=== PATIENT | female | born 1990 | race Caucasian/White ===

== ENCOUNTER 2021-04-06 00:01 | Inpatient (IN) | payer OTHER, SELFPAY ==
[2021-04-06 00:42] VITALS: BMI 35.6
[2021-04-06 01:53] VITALS: BMI 34.1
[2021-04-06] MEDS: traZODone HCL 50 MG TABLET PO (02:06)
--- NOTE | 2021-04-06 04:12 | PC.ADMIT ---
Pt is a 30 year female transferred from [facility] for Overdose. Diagnosis: Bipolar depression. Pt reported to the ER for overdosing on 21 tablets of Seroquel 400mg. Reports she was med compliant for a year, then 2months ago stopped taking meds due to negative side effects. Covid negative, FLORES negative. Pt denies SI/HI. Pt lives with her boyfriend who helps with picking up medications. Pt was calm and cooperative, VSS, speech was clear with normal tone and rhythm. Pt reports being intubated at [facility] ER.
[2021-04-06 06:00] VITALS: BP 169/88; PULSE 92; RESP 16; TEMP 36.2; O2SAT 99
[2021-04-06] MEDS: Naltrexone HCl 50 MG TABLET PO (08:45)
[2021-04-06 09:48] LABS: Appearance Urine HAZY; Color Urine YELLOW; Glucose Urine UA NEG (NEG); Leukocyte Esterase Urine NEG (NEG); Nitrite Urine NEG (NEG); Specific Gravity - Urine >= 1.030 (1.005-1.025); UACC Culture Trigger NO; Urine Blood TRACE (NEG); Urine Ketones 40 MG/DL (NEG); Urine Protein TRACE MG/DL (NEG-TRACE)
[2021-04-06 10:25] LABS: Bacteria Urine TRACE /LPF; Mucus Urine 2+ /LPF; RBC Urine 0-2 /HPF (0); Squamous Epithelial Cell Urine 4+ /LPF; UACC CULT YES
--- NOTE | 2021-04-06 15:24 | HO.PM.IMCN ---
History of Present Illness Data of Consult Service Date: 04/06/21 Requesting physician: John Ambriz Primary Care Provider: Nonstaff Physician HPI Reason for consult: Medical consult 30-year-old female admitted to 5 secondary to depression with suicidal ideation. She states this was related to alcohol intake and as she clear she is feeling better. There are no acute medical issues Review of Systems Review of Systems: Denies chest pain Denies shortness of breath Denies nausea vomiting and diarrhea PMFSH Pertinent family history: none pertinent Social History Household Members: Significant Other Housing: House Do you presently have visiting nurse or other home services: No Patient Tobacco Use Status: Never used Tobacco Use of substances other than those prescribed or required for medical reasons: No Substance Use Type Other:: Pt denies substance use Currently Displaying Signs/Symptoms of Drug Intoxication Withdrawal: No Any prior treatment program specific to substance use: No Have you been hit, kicked, punched, or otherwise hurt by someone within the past year? If so, by whom?: No Do you feel safe in your current relationship?: No Is there a partner from a previous relationship who is making you feel unsafe now?: No Are you made to feel afraid or neglected: No Spiritual Healthcare Practices: N/A Zoroastrian Healthcare Practices: N/A Cultural Healthcare Practices: N/A Advance Directives: No Advance Directives Information Provided: Yes Do you have thoughts of harming others: None Do you have a plan to hurt others: No Plan Recently lost weight without trying: No How much weight loss: Unsure Eating poorly because of decreased appetite: No Nutrition screen score: 2 Nutrition Risks: No Nutritional Risk Patient : No : No Poor oral hygiene: No service: No Sexual orientation: Did not discuss. Meds Allergies Allergy/AdvReac Type Severity Reaction Status Date / Time No Known Allergies Allergy Verified 04/06/21 00:42 Active Medications: Current Medications Acetaminophen (Acetaminophen 325 Mg Tablet) 650 mg PO Q6H PRN PRN Reason: Headache/Pain Mild Scale (1-3) Al Hydroxide/Mg Hydroxide (Magnesium Hydrox/Alum Hydrox 30 Ml Oral.Susp) 30 ml PO Q6H PRN PRN Reason: Heartburn/Nausea Hydroxyzine HCl (Hydroxyzine Hcl 25 Mg Tablet) 25 mg PO BEDTIME PRN PRN Reason: Anxiety Magnesium Hydroxide (Milk Of Magnesia 30 Ml Oral.Susp) 30 ml PO DAILY PRN PRN Reason: Constipation Naltrexone HCl (Naltrexone Hcl 50 Mg Tablet) 50 mg PO DAILY [facility]ON Last Admin: 04/06/21 08:45 Dose: 50 mg Documented by: Quetiapine Fumarate (Quetiapine Fumarate 400 Mg Tablet) 400 mg PO BEDTIME SHARRON Trazodone HCl (Trazodone Hcl 50 Mg Tablet) 50 mg PO BEDTIME PRN PRN Reason: Insomnia Last Admin: 04/06/21 02:06 Dose: 50 mg Documented by: Physical Exam Vital Signs and Narrative: Vital Signs: Last Vital Signs Temp 97.2 F 04/06/21 06:00 Pulse 92 04/06/21 06:00 Resp 16 04/06/21 06:00 BP 169/88 H 04/06/21 06:00 Pulse Ox 99 04/06/21 06:00 Body Mass Index 34.1 Const: General: no acute distress HENMT: Other: Mucous membranes moist. Oropharynx clear. TMs pearson and lucent bilaterally Resp: Auscultation: clear to auscultation bilaterally, no rales, no rhonchi and no wheezes Cardio: Rate: regular rate Rhythm: regular rhythm Heart sounds: S1 normal heart sound present, S2 normal heart sound present and no murmurs GI: Other: Soft nontender nondistended with normoactive bowel sounds. There is no appreciable hepatosplenomegaly Neuro: Other: Cranial nerves 2-12 were grossly intact as tested. Motor is 5/5 in all extremities. Sensation is tacked. Cognition is normal Extrem: General: Yes normal to inspection Results Labs Labs: Laboratory Results - last 24 hr 04/06/21 09:26 Urine Color YELLOW Urine Appearance HAZY Urine pH 6.0 Ur Specific [place] >= 1.030 H Urine Protein TRACE Urine Glucose (UA) NEG Urine Ketones 40 Urine Blood TRACE Urine Nitrite NEG Ur Leukocyte Esterase NEG Urine RBC 0-2 Urine WBC 10-14 H Ur Squamous Epith Cells 4+ Urine Bacteria TRACE Urine Mucus 2+ Assessment and Plan (1) Depression: Status: Acute Depression No acute medical issues. Plan as per Psychiatry. Please notify if any medical issues arise. Thanks
--- NOTE | 2021-04-06 17:34 | P.HPPS_ITS ---
HPI Chief Complaint: Bipolar D/O Unspecified Sources of Information: patient interviewed, chart reviewed and crisis/core team assessment reviewed HPI Subjective Notes: Heck Warning and Conditional Voluntary Healthcare Proxy: No Guardianship: No Medical Problems Affecting Mental Status: No Narrative: I felt great for a year on Klonopin 1 mg bid and Seroquel 400 mg at bedtime. I gained 50 lbs. I stopped the meds and lost 25 pounds in 2 months but the racing thoughts came back and I could not sleep. The overdose happened fast- I did not even give it a thought it just happened. 30 yo reports she has schizophrenia, hx of one prior attempt around this time in 2019, s/p OD #21 400 mg Seroquel. Reports stopping meds January 2021 due to weigh gain of 50 lbs. A few weeks into stopping pt lost 25 lbs ~8 weeks, her thoughts began to race and she identifies precipitant as out of the blue while family was sleeping. States she had been feeling SI but with no plan to OD. Past Psychiatric History: IP: 2019 Sept [place] s/p OD, 2019 [place] pt [place], she [facility]. 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 Substance History: Alcohol- one evening per week- 6 hard seltzers-was drinking when she overdosed. Since stopping medications she reports she did return to the above noted drinking pattern Toxicology positive for alcohol and cannabis Denies hx of formal treatment for addiction. Trauma History: Affirms Diagnostics Vital Signs (24Hr): Vital Signs - 24 hr 04/06/21 06:00 Temperature 97.2 F Pulse Rate 92 Respiratory Rate 16 Blood Pressure 169/88 H Pulse Oximetry 99 Body Mass Index 34.1 Labs Labs: Laboratory Results - last 48 hr 04/06/21 09:26 Urine Color YELLOW Urine Appearance HAZY Urine pH 6.0 Ur Specific [place] >= 1.030 H Urine Protein TRACE Urine Glucose (UA) NEG Urine Ketones 40 Urine Blood TRACE Urine Nitrite NEG Ur Leukocyte Esterase NEG Urine RBC 0-2 Urine WBC 10-14 H Ur Squamous Epith Cells 4+ Urine Bacteria TRACE Urine Mucus 2+ Meds/Allergies Meds Home Medications Acetaminophen (Acetaminophen 325 Mg Tablet) 650 mg PO Q6H PRN PRN Reason: Headache/Pain Mild Scale (1-3) Al Hydroxide/Mg Hydroxide (Magnesium Hydrox/Alum Hydrox 30 Ml Oral.Susp) 30 ml PO Q6H PRN PRN Reason: Heartburn/Nausea Famotidine (Famotidine 20 Mg Tablet) 20 mg PO DAILY [facility] Hydroxyzine HCl (Hydroxyzine Hcl 25 Mg Tablet) 25 mg PO BEDTIME PRN PRN Reason: Anxiety Lamotrigine (Lamotrigine 25 Mg Tablet) 25 mg PO BEDTIME [facility] Magnesium Hydroxide (Milk Of Magnesia 30 Ml Oral.Susp) 30 ml PO DAILY PRN PRN Reason: Constipation Naltrexone HCl (Naltrexone Hcl 50 Mg Tablet) 50 mg PO DAILY SHARRON Last Admin: 04/06/21 08:45 Dose: 50 mg Documented by: Olanzapine (Olanzapine 10 Mg Tablet) 10 mg PO ONCE ONE Stop: 04/06/21 21:01 Trazodone HCl (Trazodone Hcl 50 Mg Tablet) 50 mg PO BEDTIME PRN PRN Reason: Insomnia Last Admin: 04/06/21 02:06 Dose: 50 mg Documented by: Allergies Allergies Allergy/AdvReac Type Severity Reaction Status Date / Time No Known Allergies Allergy Verified 04/06/21 00:42 Mental Status Exam Mental Status Exam Patient Appearance: Appropriate Patient Orientation: Person, Place, Time and Situation Level of Consciousness: Awake, Appropriate and Alert Patient Behavior: Appropriate, Talkative, Cooperative, Passive and Good Eye Contact Mood Description: Depressed Affect Description: Flat Patient Cognition Impaired: No Ability to Follow Directions: Good Speech Pattern: Spontaneous Speech Memory Description: Intact Hallucinations: None Delusions: Not Present Thought Process: Distracted Thought Content: positive for Circumstantial Depressive Symptoms: Difficulty Concentrating (racing of her thoughts) Judgement: Fair Assessment & Plan Assessment & Plan (1) Schizoaffective disorder: Status: Acute Code(s): F25.9 - Schizoaffective disorder, unspecified Assessment and Plan: 30 yo s/p OD of #21 400 mg Seroquel in a reported precipitous attempt that took place a few weeks after she stopped medications due to weight gain. Hx of two previous admissions, one for OD Mar 2020. Pt denies any anniversary time, denies SAD hx or current sx and has no other specific precipitant she identifies. She did, when stopping meds, returned to weekly alcohol consumption and did have positive toxicology for cannabis. Plan: Diagnostics-none found-pt has been medically in pt for ~6 days If these are WNL consider Nellie Trial. Lamictal 25 mg daily Reason for continued inpatient stay Substantial Risk for: harm to self and rapid decompensation
[2021-04-06 18:00] VITALS: BP 134/77; PULSE 74; RESP 18; TEMP 36.5; O2SAT 99
[2021-04-06] MEDS: lamoTRIgine 25 MG TABLET PO (20:52)
[2021-04-06] MEDS: OLANZapine 10 MG TABLET PO (20:52)
[2021-04-07 06:00] VITALS: BP 128/80; PULSE 88; TEMP 36.5; O2SAT 98
[2021-04-07] MEDS: Famotidine 20 MG TABLET PO (09:15)
[2021-04-07] MEDS: Naltrexone HCl 50 MG TABLET PO (09:15)
[2021-04-07] MEDS: Acetaminophen 325 MG TABLET 650 MG PO (09:19)
[2021-04-07 10:19] LABS: MANUAL DIFF FLAG NO
[2021-04-07 10:39] LABS: Alanine Aminotransferase 31 U/L (0-31); Albumin Level 4.7 g/dL (3.5-5.0); Alkaline Phosphatase 81 U/L (39-117); Anion Gap 17 (12-20); Aspartate Amino Transferase 29 U/L (5-31); Bilirubin Total 0.6 mg/dL (0.0-1.0); Blood Urea Nitrogen 8 mg/dL (9-16); Carbon Dioxide 22 mmol/L (22-29); Chloride 103 mmol/L (96-108); Cholesterol 348 mg/dL; Creatinine Clr Calc Pharmacy 101.5; Estimated Glomerular Filt Rate > 60; Glucose Fasting 88 mg/dL (60-99); HDL Cholesterol 29 mg/dL; LDL Cholesterol Calculated 283 mg/dl; Potassium 4.2 mmol/L (3.3-5.1); Sodium 138 mmol/L (135-145); Total Protein 8.1 g/dL (6.5-8.0); Triglycerides 184 mg/dL
[2021-04-07 10:41] LABS: Basophils Percent Auto 0.4 % (0-2); Eosinophils Absolute Auto 0.1 X10*3/uL (0.0-0.4); Eosinophils Percent Auto 1.7 % (0-4); Hematocrit 45.8 % (37-47); Hemoglobin 15.3 g/dl (12.0-16.0); Imm Gran Abs Auto 0.03 X10*3/uL (0.00-0.03); Imm Gran Pct Auto 0.4 % (0.0-0.4); Lymphocytes Absolute Auto 2.1 X10*3/uL (1.2-4.9); Lymphocytes Percent Auto 29.7 % (20-40); Mean Corpuscular HGB Conc 33.4 g/dl (31.0-35.0); Mean Corpuscular Hemoglobin 30.7 pg (27.0-33.0); Mean Platelet Volume 12.2 fL (9.4-12.3); Monocytes Absolute Auto 0.6 X10*3/uL (0.1-1.2); Monocytes Percent Auto 8.8 % (2-11); Neutrophils Absolute Auto 4.2 X10*3/uL (2.0-8.3); Platelet Count 241 X10*3/uL (160-400); Red Blood Count 4.98 X10*6/uL (4.20-5.50); Red Cell Distribution Width 13.1 % (11.0-16.0); White Blood Count 7.1 X10*3/uL (4.8-10.8)
[2021-04-07 10:57] LABS: Estimated Average Glucose 94 mg/dL; Hemoglobin A1c % 4.9 %
[2021-04-07 11:01] LABS: Thyroid Stimulating Hormone 1.66 uIU/mL (0.32-4.0)
--- NOTE | 2021-04-07 13:13 | P.PNPSI_ITS ---
Subjective Subjective Date of Service: 04/07/21 Reason For Visit: Bipolar D/O Unspecified Interim History: Reports that she is overall feeling better. She said she did attempt suicide this past week however her mood has improved and she denies any SI or HI. She also denies AVH and says she has never struggled with such. Patient reports she is sleeping well and has no complaints or requests. She reports medications are working and denies any side effects Mental Status Exam Mental Status Exam Narrative: Appearance:?lying in bed, hosptial gown with adequate hygiene Patient Orientation:?Person, Place, Time and Situation Level of Consciousness:?Awake, Appropriate and Alert Patient Behavior:?Appropriate, calm, Cooperative, Passive and Good Eye Contact Mood Description:? better Affect Description:?kind of bland Patient Cognition Impaired:?No Ability to Follow Directions:?Good Speech Pattern:?Spontaneous Speech Memory Description:?Intact Hallucinations:?None Delusions:?Not Present Thought Process:?goal directed Thought Content:?on treatment; denies SI or HI Judgement:?Fair Diagnostics Vital Signs (24Hr): Vital Signs - 24 hr 04/06/21 18:00 04/07/21 06:00 Temperature 97.7 F 97.7 F Pulse Rate 74 88 Respiratory Rate 18 Blood Pressure 134/77 128/80 Pulse Oximetry 99 98 Body Mass Index 34.1 Labs Results: 04/07/21 09:20 04/07/21 09:20 Labs: Laboratory Results - last 48 hr 04/06/21 04/07/21 04/07/21 09:26 09:20 09:20 WBC 7.1 RBC 4.98 Hgb 15.3 Hct 45.8 MCV 92.0 MCH 30.7 MCHC 33.4 RDW 13.1 Plt Count 241 MPV 12.2 Immature Gran % (Auto) 0.4 Neut % (Auto) 59.0 Lymph % (Auto) 29.7 [place] % (Auto) 8.8 Eos % (Auto) 1.7 Baso % (Auto) 0.4 Lymph # (Auto) 2.1 [place] # (Auto) 0.6 Eos # (Auto) 0.1 Baso # (Auto) 0.0 Abs Immat Gran (auto) 0.03 Absolute Neuts (auto) 4.2 Absolute Nucleated RBC 0.000 Nucleated RBC % (auto) 0.0 Sodium 138 Potassium 4.2 Chloride 103 Carbon Dioxide 22 Anion Gap 17 BUN 8 L Creatinine 0.81 Estim Creat Clear Calc 101.5 Estimated GFR > 60 Random Glucose TNP Fasting Glucose 88 Estimat Average Glucose Hemoglobin A1c % Calcium 10.0 Total Bilirubin 0.6 AST 29 ALT 31 Alkaline Phosphatase 81 Total Protein 8.1 H Albumin 4.7 Triglycerides 184 Cholesterol 348 LDL Cholesterol, Calc 283 HDL Cholesterol 29 TSH 1.66 Urine Color YELLOW Urine Appearance HAZY Urine pH 6.0 Ur Specific [place] >= 1.030 H Urine Protein TRACE Urine Glucose (UA) NEG Urine Ketones 40 Urine Blood TRACE Urine Nitrite NEG Ur Leukocyte Esterase NEG Urine RBC 0-2 Urine WBC 10-14 H Ur Squamous Epith Cells 4+ Urine Bacteria TRACE Urine Mucus 2+ 04/07/21 09:20 WBC RBC Hgb Hct MCV MCH MCHC RDW Plt Count MPV Immature Gran % (Auto) Neut % (Auto) Lymph % (Auto) [place] % (Auto) Eos % (Auto) Baso % (Auto) Lymph # (Auto) [place] # (Auto) Eos # (Auto) Baso # (Auto) Abs Immat Gran (auto) Absolute Neuts (auto) Absolute Nucleated RBC Nucleated RBC % (auto) Sodium Potassium Chloride Carbon Dioxide Anion Gap BUN Creatinine Estim Creat Clear Calc Estimated GFR Random Glucose Fasting Glucose Estimat Average Glucose 94 Hemoglobin A1c % 4.9 Calcium Total Bilirubin AST ALT Alkaline Phosphatase Total Protein Albumin Triglycerides Cholesterol LDL Cholesterol, Calc HDL Cholesterol TSH Urine Color Urine Appearance Urine pH Ur Specific [place] Urine Protein Urine Glucose (UA) Urine Ketones Urine Blood Urine Nitrite Ur Leukocyte Esterase Urine RBC Urine WBC Ur Squamous Epith Cells Urine Bacteria Urine Mucus Medications Medications Current Medications Acetaminophen (Acetaminophen 325 Mg Tablet) 650 mg PO Q6H PRN PRN Reason: Headache/Pain Mild Scale (1-3) Last Admin: 04/07/21 09:19 Dose: 650 mg Documented by: Al Hydroxide/Mg Hydroxide (Magnesium Hydrox/Alum Hydrox 30 Ml Oral.Susp) 30 ml PO Q6H PRN PRN Reason: Heartburn/Nausea Famotidine (Famotidine 20 Mg Tablet) 20 mg PO DAILY [facility] Last Admin: 04/07/21 09:15 Dose: 20 mg Documented by: Hydroxyzine HCl (Hydroxyzine Hcl 25 Mg Tablet) 25 mg PO BEDTIME PRN PRN Reason: Anxiety Lamotrigine (Lamotrigine 25 Mg Tablet) 25 mg PO BEDTIME [facility] Last Admin: 04/06/21 20:52 Dose: 25 mg Documented by: Magnesium Hydroxide (Milk Of Magnesia 30 Ml Oral.Susp) 30 ml PO DAILY PRN PRN Reason: Constipation Naltrexone HCl (Naltrexone Hcl 50 Mg Tablet) 50 mg PO DAILY [facility]ON Last Admin: 04/07/21 09:15 Dose: 50 mg Documented by: Trazodone HCl (Trazodone Hcl 50 Mg Tablet) 50 mg PO BEDTIME PRN PRN Reason: Insomnia Last Admin: 04/06/21 02:06 Dose: 50 mg Documented by: Allergies Allergies Allergy/AdvReac Type Severity Reaction Status Date / Time No Known Allergies Allergy Verified 04/06/21 00:42 Assessment & Plan Assessment & Plan (1) Schizoaffective disorder: Status: Acute Code(s): F25.9 - Schizoaffective disorder, unspecified Assessment and Plan: 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 Hx of two previous admissions, one for OD Mar 2020. Pt denies any anniversary time, denies SAD hx or current sx and has no other specific precipitant she ident ifies. She did, when stopping meds, returned to weekly alcohol consumption and did have positive toxicology for cannabis. Plan: Diagnostics-none found-pt has been medically in pt for ~6 days If these are WNL consider Nellie Trial. Lamictal 25 mg daily Greater than 50% of the session was spent on counseling and/or coordination of care Reason for contiued inpatient stay Substantial Risk for: rapid decompensation
[2021-04-07 18:00] VITALS: BP 124/77; PULSE 85
[2021-04-07] MEDS: lamoTRIgine 25 MG TABLET PO (22:13)
[2021-04-07] MEDS: traZODone HCL 50 MG TABLET PO (22:21)
[2021-04-08 06:00] VITALS: BP 121/72; PULSE 75; TEMP 36.7; O2SAT 99
[2021-04-08] MEDS: Naltrexone HCl 50 MG TABLET PO (09:00)
[2021-04-08] MEDS: Famotidine 20 MG TABLET PO (09:00)
[2021-04-08] MEDS: lamoTRIgine 25 MG TABLET PO (20:24)
[2021-04-08] MEDS: traZODone HCL 50 MG TABLET PO (20:26)
--- NOTE | 2021-04-08 21:48 | P.PNPSI_ITS ---
Subjective Subjective Date of Service: 04/08/21 Reason For Visit: Bipolar D/O Unspecified Interim History: Pt reports no depression, no SI/avh. She says whatever triggered her attempt is passed and it was while she was intoxicated and off medications. Pt reports meds working well and she wants to stay on them. She is feeling ready for discharge and hopes to go soon. Mental Status Exam Mental Status Exam Narrative: Appearance: hosptial gown with adequate hygiene Patient Orientation:?Person, Place, Time and Situation Level of Consciousness:?Awake, Appropriate and Alert Patient Behavior:?Appropriate, calm, Cooperative, and Good Eye Contact Mood Description:? good Affect Description:?mildly constricted Patient Cognition Impaired:?No Ability to Follow Directions:?Good Speech Pattern:?Spontaneous Speech Memory Description:?Intact Hallucinations:?None Delusions:?Not Present Thought Process:?goal directed Thought Content:?on treatment; denies SI or HI Judgement:?Fair Diagnostics Vital Signs (24Hr): Vital Signs - 24 hr 04/08/21 06:00 Temperature 98.1 F Pulse Rate 75 Blood Pressure 121/72 Pulse Oximetry 99 Body Mass Index 34.1 Labs Results: 04/07/21 09:20 04/07/21 09:20 Labs: Laboratory Results - last 48 hr 04/07/21 04/07/21 04/07/21 09:20 09:20 09:20 WBC 7.1 RBC 4.98 Hgb 15.3 Hct 45.8 MCV 92.0 MCH 30.7 MCHC 33.4 RDW 13.1 Plt Count 241 MPV 12.2 Immature Gran % (Auto) 0.4 Neut % (Auto) 59.0 Lymph % (Auto) 29.7 [place] % (Auto) 8.8 Eos % (Auto) 1.7 Baso % (Auto) 0.4 Lymph # (Auto) 2.1 [place] # (Auto) 0.6 Eos # (Auto) 0.1 Baso # (Auto) 0.0 Abs Immat Gran (auto) 0.03 Absolute Neuts (auto) 4.2 Absolute Nucleated RBC 0.000 Nucleated RBC % (auto) 0.0 Sodium 138 Potassium 4.2 Chloride 103 Carbon Dioxide 22 Anion Gap 17 BUN 8 L Creatinine 0.81 Estim Creat Clear Calc 101.5 Estimated GFR > 60 Random Glucose TNP Fasting Glucose 88 Estimat Average Glucose 94 Hemoglobin A1c % 4.9 Calcium 10.0 Total Bilirubin 0.6 AST 29 ALT 31 Alkaline Phosphatase 81 Total Protein 8.1 H Albumin 4.7 Triglycerides 184 Cholesterol 348 LDL Cholesterol, Calc 283 HDL Cholesterol 29 TSH 1.66 Medications Medications Current Medications Acetaminophen (Acetaminophen 325 Mg Tablet) 650 mg PO Q6H PRN PRN Reason: Headache/Pain Mild Scale (1-3) Last Admin: 04/07/21 09:19 Dose: 650 mg Documented by: Al Hydroxide/Mg Hydroxide (Magnesium Hydrox/Alum Hydrox 30 Ml Oral.Susp) 30 ml PO Q6H PRN PRN Reason: Heartburn/Nausea Famotidine (Famotidine 20 Mg Tablet) 20 mg PO DAILY [facility] Last Admin: 04/08/21 09:00 Dose: 20 mg Documented by: Hydroxyzine HCl (Hydroxyzine Hcl 25 Mg Tablet) 25 mg PO BEDTIME PRN PRN Reason: Anxiety Lamotrigine (Lamotrigine 25 Mg Tablet) 25 mg PO BEDTIME [facility] Last Admin: 04/08/21 20:24 Dose: 25 mg Documented by: Magnesium Hydroxide (Milk Of Magnesia 30 Ml Oral.Susp) 30 ml PO DAILY PRN PRN Reason: Constipation Naltrexone HCl (Naltrexone Hcl 50 Mg Tablet) 50 mg PO DAILY [facility] Last Admin: 04/08/21 09:00 Dose: 50 mg Documented by: Trazodone HCl (Trazodone Hcl 50 Mg Tablet) 50 mg PO BEDTIME PRN PRN Reason: Insomnia Last Admin: 04/08/21 20:26 Dose: 50 mg Documented by: Allergies Allergies Allergy/AdvReac Type Severity Reaction Status Date / Time No Known Allergies Allergy Verified 04/06/21 00:42 Assessment & Plan Assessment & Plan (1) Schizoaffective disorder: Status: Acute Code(s): F25.9 - Schizoaffective disorder, unspecified Assessment and 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 Hx of two previous admissions, one for OD Mar 2020. Pt denies any anniversary time, denies SAD hx or current sx and has no other specific precipitant she identifies. She did, when stopping meds, returned to weekly alcohol consumption and did have positive toxicology for cannabis. Plan: Diagnostics-none found-pt has been medically in pt for ~6 days If these are WNL consider Nellie Trial. Lamictal 25 mg daily Greater than 50% of the session was spent on counseling and/or coordination of care Reason for contiued inpatient stay Substantial Risk for: med/psych decompensation
[2021-04-09 06:00] VITALS: BP 131/63; PULSE 80; TEMP 36.4; O2SAT 96
[2021-04-09] MEDS: Naltrexone HCl 50 MG TABLET PO (09:02)
[2021-04-09] MEDS: Famotidine 20 MG TABLET PO (09:02)
[2021-04-09 09:07] LABS: Folate 15.1 ng/mL (> or = 4.0); Vitamin B12 415 pg/mL (200-900)
[2021-04-09] MEDS: Acetaminophen 325 MG TABLET 650 MG PO (13:05)
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
[2021-04-09] MEDS: FLUoxetine HCl 10 MG CAPSULE PO (17:24)
[2021-04-09 18:00] VITALS: BP 110/77; PULSE 84
[2021-04-09] MEDS: lamoTRIgine 25 MG TABLET PO (20:34)
[2021-04-10 06:00] VITALS: BP 121/74; PULSE 81; TEMP 37.3; O2SAT 96
[2021-04-10] MEDS: Famotidine 20 MG TABLET PO (09:11)
[2021-04-10] MEDS: Naltrexone HCl 50 MG TABLET PO (09:11)
[2021-04-10] MEDS: FLUoxetine HCl 10 MG CAPSULE PO (09:11)
[2021-04-10] MEDS: Acetaminophen 325 MG TABLET 650 MG PO (09:29)
[2021-04-10 14:20] LABS: Appearance Urine HAZY; Color Urine YELLOW; Glucose Urine UA NEG (NEG); Leukocyte Esterase Urine NEG (NEG); Nitrite Urine NEG (NEG); Urine Blood NEG (NEG); Urine Ketones 15 MG/DL (NEG); Urine Protein NEG (NEG-TRACE)
[2021-04-10 14:52] LABS: Bacteria Urine TRACE /LPF; Mucus Urine 3+ /LPF; Squamous Epithelial Cell Urine 2+ /LPF
[2021-04-10 16:31] VITALS: BP 122/68; PULSE 65; TEMP 36.3; O2SAT 97
[2021-04-10] MEDS: Ziprasidone 20 MG CAPSULE PO (17:00)
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
[2021-04-10] MEDS: lamoTRIgine 25 MG TABLET PO (21:37)
[2021-04-10] MEDS: traZODone HCL 50 MG TABLET PO (21:41)
--- NOTE | 2021-04-11 | ECG_ITS ---
Test Reason : qtc check Blood Pressure : / mmHG Vent. Rate : 063 BPM Atrial Rate : 063 BPM P-R Int : 136 ms QRS Dur : 082 ms QT Int : 410 ms P-R-T Axes : 041 034 007 degrees QTc Int : 419 ms Normal sinus rhythm Normal ECG No previous ECGs available Referred By: John Ambriz Electronically Signed By:SHALINI COOLEY
[2021-04-11 06:00] VITALS: BP 127/63; PULSE 68; RESP 17; O2SAT 99
[2021-04-11] MEDS: Naltrexone HCl 50 MG TABLET PO (08:30)
[2021-04-11] MEDS: FLUoxetine HCl 20 MG CAPSULE PO (08:30)
[2021-04-11] MEDS: Ziprasidone 20 MG CAPSULE PO ×2 (08:31→17:54)
[2021-04-11] MEDS: Famotidine 20 MG TABLET PO (08:31)
== END 2021-04-11 18:00 | disposition home or self-care (01) | DRG 751 ==
PROVIDERS: Clinical Nurse Specialist Psychiatric/Mental Health, Adult; Psychiatry & Neurology Psychiatry; Admitting Provider Psychiatry & Neurology Psychiatry; Visit Provider Psychiatry & Neurology Psychiatry
DX: F33.1 Major depressive disorder, recurrent, moderate (principal); F42.9 Obsessive-compulsive disorder, unspecified; F43.10 Post-traumatic stress disorder, unspecified; Z91.5 Personal history of self-harm; Z79.899 Other long term (current) drug therapy
CPT/HCPCS: 36415; 80053; 80061; 81001; 82607; 82746; 83036; 84443; 85025; 93005

== ENCOUNTER 2024-02-17 22:54 | Inpatient (IN) | payer OTHER, SELFPAY ==
[2024-02-17] MEDS: Lithium Carbonate ER 300 MG TABLET.ER 600 MG PO (23:34)
[2024-02-17] MEDS: ARIPiprazole 15 MG TABLET PO (23:34)
[2024-02-17] MEDS: traZODone HCL 50 MG TABLET PO (23:34)
[2024-02-17] MEDS: hydrOXYzine HCL 25 MG TABLET PO (23:34)
[2024-02-17] MEDS: Benztropine Mesylate 0.5 MG TABLET PO (23:34)
[2024-02-17 23:40] VITALS: RESP 18
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
[2024-02-18 08:28] VITALS: BP 110/63; PULSE 67; RESP 18; TEMP 36.5; O2SAT 99
[2024-02-18] MEDS: ARIPiprazole 15 MG TABLET PO (08:51)
--- NOTE | 2024-02-18 10:42 | HO.HSGERICON ---
History of Present Illness Data of Consult Service Date: 02/18/24 Primary Care Provider: Unknown Physician HPI Reason for consult: Medical management This is a 33-year-old male with pertinent history of mood disorder who is admitted to inpatient psychiatry for decompensated psychiatric illness. Patient denies any history of known medical problems. Denies any complaints at the time of my evaluation. No chest pain, shortness of breath or any other complaints. Review of Systems Constitutional: Constitutional: Reports no additional constitutional complaints Cardiovascular: Cardiovascular: Reports no additional cardiovascular complaints Respiratory: Respiratory: Reports no additional respiratory complaints Gastrointestinal: Gastrointestinal: Reports no additional gastrointestinal complaints Genitourinary: Genitourinary: Reports no additional female genitourinary complaints [facility] Medical History MDD (major depressive disorder), recurrent episode, moderate PTSD (post-traumatic stress disorder) Pertinent family history: No family history of early seen Social History Household Members: Significant Other Household Members Other:: BOYFRIEND, JOHNNY Housing: House Do you presently have visiting nurse or other home services: No Patient Tobacco Use Status: Never used Tobacco Use of substances other than those prescribed or required for medical reasons: Yes Substance Use Type: Marijuana Last Used Substance: Just Prior to Admission Currently Displaying Signs/Symptoms of Drug Intoxication Withdrawal: No Do you feel safe in your current relationship?: Yes Is there a partner from a previous relationship who is making you feel unsafe now?: No Are you made to feel afraid or neglected: No Advance Directives: No Advance Directives Information Provided: No Do you have thoughts of harming others: None Do you have a plan to hurt others: No Plan Nutrition Risks: No Nutritional Risk Patient : No : No Poor oral hygiene: No service: No Sexual orientation: Did not discuss. Meds Allergies Allergy/AdvReac Type Severity Reaction Status Date / Time No Known Allergies Allergy Verified 04/06/21 00:42 Active Medications: Current Medications Acetaminophen (Acetaminophen 325 Mg Tablet) 650 mg PO Q6H PRN PRN Reason: Headache/Pain Mild Scale (1-3) Al Hydroxide/Mg Hydroxide (Magnesium Hydrox/Alum Hydrox 30 Ml Oral.Susp) 30 ml PO Q6H PRN PRN Reason: Heartburn/Nausea Aripiprazole (Aripiprazole 15 Mg Tablet) 15 mg PO DAILY SHARRON Last Admin: 02/18/24 08:51 Dose: 15 mg Benztropine Mesylate (Benztropine Mesylate 0.5 Mg Tablet) 0.5 mg PO BEDTIME SHARRON Last Admin: 02/17/24 23:34 Dose: 0.5 mg Hydroxyzine HCl (Hydroxyzine Hcl 25 Mg Tablet) 25 mg PO Q6H PRN PRN Reason: Anxiety Last Admin: 02/17/24 23:34 Dose: 25 mg [place] Carbonate ([place] Carbonate Er 300 Mg Tablet.Er) 600 mg PO BEDTIME SHARRON Last Admin: 02/17/24 23:34 Dose: 600 mg Lorazepam (Lorazepam 1 Mg Tablet) 1 mg PO Q4H PRN PRN Reason: agitation Magnesium Hydroxide (Milk Of Magnesia 30 Ml Oral.Susp) 30 ml PO DAILY PRN PRN Reason: Constipation Nicotine (Nicotine 21 Mg Patch.Td24) 21 mg TRANSDERMA DAILY PRN PRN Reason: nicotine cravings Nicotine Polacrilex (Nicotine Polacrilex 2 Mg Gum) 4 mg BUCCAL Q2H PRN PRN Reason: Nicotine Cravings Olanzapine (Olanzapine 5 Mg Tablet) 5 mg PO TID PRN PRN Reason: psychosis, agitation Risperidone (Risperidone 1 Mg Tablet) 1 mg PO BEDTIME SHARRON Last Admin: 02/17/24 23:36 Dose: Not Given Trazodone HCl (Trazodone Hcl 50 Mg Tablet) 50 mg PO BEDTIME MRX1 PRN PRN Reason: Insomnia Last Admin: 02/17/24 23:34 Dose: 50 mg Home Medications ?Medication ?Instructions ?Recorded ?Confirmed ?Last Taken ?Type aripiprazole 15 mg tablet 15 mg PO QAM 02/18/24 02/18/24 02/17/24 23:40 History benztropine 0.5 mg tablet 0.5 mg PO BID 02/18/24 02/18/24 02/17/24 23:40 History lithium carbonate 300 mg 600 mg PO BEDTIME 02/18/24 02/18/24 02/17/24 23:40 History tablet,extended release risperidone 1 mg tablet 1 mg PO BEDTIME 02/18/24 02/18/24 Unknown History Assessment and Plan (1) MDD (major depressive disorder), recurrent episode, moderate: Status: Chronic Plan This is a 33-year-old male with pertinent history of mood disorder who is admitted to inpatient psychiatry for decompensated psychiatric illness. No acute medical issues. Will sign off. Thank you for the consult. Please notify if we can help Physical Exam Vital Signs: Last Vital Signs Temp 97.7 F 02/18/24 08:28 Pulse 67 02/18/24 08:28 Resp 18 02/18/24 08:28 BP 110/63 02/18/24 08:28 Pulse Ox 99 02/18/24 08:28 O2 Del Method Room Air 02/18/24 08:28 Middle-aged female lying in bed in no distress Neck supple, no JVD Regular rate and rhythm, S1-S2 heard Regular breath sounds bilaterally, no wheezing or crackles appreciated Abdomen soft nontender, no guarding, no rigidity Patient is awake, alert and oriented to self, place, time and person ; no focal motor deficit Psych: Normal mood No pedal edema Neuro Cranial nerves: Yes CN's II-XII intact bilaterally
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
[2024-02-18 20:00] VITALS: BP 126/69; PULSE 86; RESP 16; TEMP 36.4; O2SAT 100
[2024-02-18] MEDS: traZODone HCL 50 MG TABLET PO (21:19)
[2024-02-18] MEDS: Lithium Carbonate ER 300 MG TABLET.ER 600 MG PO (21:19)
[2024-02-18] MEDS: Benztropine Mesylate 0.5 MG TABLET PO (21:19)
[2024-02-19 08:00] VITALS: BP 116/61; PULSE 65; RESP 16; TEMP 37.1; O2SAT 98
[2024-02-19] MEDS: ARIPiprazole 15 MG TABLET PO (09:50)
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
[2024-02-19 19:50] VITALS: RESP 18
[2024-02-19] MEDS: traZODone HCL 50 MG TABLET PO (20:36)
[2024-02-19] MEDS: Lithium Carbonate ER 300 MG TABLET.ER 600 MG PO (20:36)
[2024-02-19] MEDS: Benztropine Mesylate 0.5 MG TABLET PO (20:36)
[2024-02-20 08:00] VITALS: BP 105/63; PULSE 80; RESP 16; TEMP 36.6; O2SAT 100
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
[2024-02-20 20:00] VITALS: BP 129/65; PULSE 58; RESP 16; TEMP 37.1; O2SAT 98
[2024-02-21 08:07] VITALS: BP 124/84; PULSE 80; RESP 18; TEMP 36.3; O2SAT 98
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
[2024-02-24] MEDS: Haloperidol Lactate 5 MG/ML VIAL IM (05:09)
[2024-02-24] MEDS: LORazepam 2 MG/ML VIAL IM (05:10)
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
--- NOTE | 2024-02-24 19:19 | PC.NURSE ---
Pt denied SI/HI/AVH. She continued to isolate in room, laying in bed, and staring up at ceiling only coming out of room to request more to drink. Pt declined to participate in restraint debriefing as well.
[2024-02-25 08:00] VITALS: RESP 18
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
[2024-02-26 07:53] VITALS: RESP 18
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
[2024-02-26 20:00] VITALS: RESP 18
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
[2024-02-27 20:00] VITALS: RESP 15
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
[2024-02-29 06:00] VITALS: BP 124/81; PULSE 101; RESP 16; O2SAT 100
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
[2024-02-29 08:00] VITALS: RESP 18
[2024-02-29 19:39] VITALS: RESP 15
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
[2024-03-01 19:59] VITALS: RESP 15
[2024-03-02 08:00] VITALS: RESP 18
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
[2024-03-03 20:00] VITALS: RESP 18
[2024-03-04 08:00] VITALS: RESP 16
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
[2024-03-04] MEDS: HaloperidoL 5 MG TABLET 10 MG PO (13:50)
[2024-03-04] MEDS: LORazepam 1 MG TABLET 2 MG PO (13:50)
[2024-03-04] MEDS: ARIPiprazole 15 MG TABLET PO (13:50)
[2024-03-04 20:00] VITALS: RESP 18
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
[2024-03-05] MEDS: ARIPiprazole 15 MG TABLET PO (17:26)
--- NOTE | 2024-03-05 18:58 | PC.NURSE ---
received news that she is being committed without incident. She immediately came out of her room and asked can I take meds now , she only wanted what was scheduled for today no prns. She took am abililfy quickly, before RN could say anything additional to her regarding her meds, she turned around and immediately went into her bathroom. Dr Shoemaker aware.
[2024-03-05 20:00] VITALS: BP 108/61; PULSE 80; RESP 16; TEMP 36.4; O2SAT 100
[2024-03-05] MEDS: Lithium Carbonate ER 300 MG TABLET.ER 600 MG PO (21:27)
[2024-03-05] MEDS: Benztropine Mesylate 0.5 MG TABLET PO (21:27)
[2024-03-06 08:00] VITALS: RESP 18
[2024-03-06] MEDS: ARIPiprazole 15 MG TABLET PO (09:40)
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
[2024-03-07 08:00] VITALS: BP 113/73; PULSE 89; RESP 18; TEMP 36.3; O2SAT 100
[2024-03-07] MEDS: ARIPiprazole 15 MG TABLET PO (09:17)
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
[2024-03-07 20:00] VITALS: BP 131/68; PULSE 78; RESP 15; TEMP 36.4; O2SAT 100
[2024-03-08] MEDS: ARIPiprazole 15 MG TABLET PO (09:18)
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
[2024-03-08 16:05] VITALS: BP 118/69; PULSE 84; RESP 16; TEMP 36.5; O2SAT 100
[2024-03-08] MEDS: Acetaminophen 325 MG TABLET 650 MG PO (19:31)
[2024-03-08 21:30] LABS: Appearance Urine Clear; Color Urine Yellow; Glucose Urine UA Negative (Negative); Leukocyte Esterase Urine Negative (Negative); Nitrite Urine Negative (Negative); Specific Gravity - Urine 1.015 (1.005-1.025); Urine Blood Negative (Negative); Urine Ketones Negative (Negative); Urine Protein Negative (Neg-Trace)
[2024-03-09 08:00] VITALS: BP 126/59; PULSE 89; RESP 18; TEMP 36.8; O2SAT 99
[2024-03-09] MEDS: ARIPiprazole 15 MG TABLET PO (09:11)
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
[2024-03-09 20:00] VITALS: BP 121/72; PULSE 81; TEMP 36.6; O2SAT 99
[2024-03-10 08:00] VITALS: BP 115/71; PULSE 80; RESP 16; TEMP 36.4; O2SAT 97
[2024-03-10 09:03] LABS: Lithium < 0.10 mmol/L (0.60-1.20)
[2024-03-10 09:11] LABS: Anion Gap 8 (12-20); Blood Urea Nitrogen 11 mg/dL (9-16); Calcium 9.8 mg/dL (8.4-10.2); Carbon Dioxide 30 mmol/L (22-29); Chloride 107 mmol/L (96-108); Estimated Glomerular Filt Rate > 60; Glucose Random 86 mg/dL (60-115); Sodium 141 mmol/L (135-145)
[2024-03-10] MEDS: ARIPiprazole 15 MG TABLET PO (09:15)
[2024-03-10 09:28] LABS: TSH reflex Free T4 2.16 uIU/mL (0.32-4.0)
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
[2024-03-11 07:00] VITALS: BMI 27.8
[2024-03-11 07:58] VITALS: BP 111/56; PULSE 66; RESP 16; TEMP 36.4; O2SAT 97
[2024-03-11] MEDS: ARIPiprazole 15 MG TABLET PO (08:47)
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
[2024-03-11] MEDS: LORazepam 1 MG TABLET 2 MG PO (13:10)
[2024-03-11] MEDS: HaloperidoL 5 MG TABLET PO (13:10)
[2024-03-11] MEDS: diphenhydrAMINE HCL 25 MG CAPSULE 50 MG PO (13:10)
--- NOTE | 2024-03-11 13:31 | HO.PSYEVENT ---
Documented by User: Lynette Zabala APRN 03/11/24 13:34 Event Note Date of Service: 03/11/24 Psych Restraint Event Note: Notified by Dr. Ambriz at 1258 that pt required medication restraint. 11/12/49 due to throwing a tray at team. Team requests change to dietary regime-safety tray entered. Time Spent With Patient Time: Total time managing care of this patient today ____ minutes. Documented by User: Antwan Shoemaker MD 03/11/24 20:23 Event Note Date of Service: 03/11/24
--- NOTE | 2024-03-11 13:34 | HO.PSYEVENT ---
Documented by User: Lynette Zabala APRN 03/11/24 13:35 Event Note Date of Service: 03/11/24 Psych Restraint Event Note: Pt came out of her room, running toward dietary cart, attempting to grab trays, throw food dishes. Medication restraint ordered 04/14/50. Pt required 4 point restraints as well. Time Spent With Patient Time: Total time managing care of this patient today ____ minutes. Documented by User: Antwan Shoemaker MD 03/11/24 21:54 Event Note Date of Service: 03/11/24
[2024-03-11] MEDS: diphenhydrAMINE HCL 50 MG/ML VIAL IM (13:36)
[2024-03-11] MEDS: Haloperidol Lactate 5 MG/ML VIAL 10 MG IM (13:36)
[2024-03-11] MEDS: LORazepam 2 MG/ML VIAL IM (13:36)
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
[2024-03-11 20:00] VITALS: BP 109/65; PULSE 98; RESP 18; TEMP 36.6; O2SAT 100
[2024-03-11] MEDS: Lithium Carbonate ER 300 MG TABLET.ER 600 MG PO (21:04)
[2024-03-11] MEDS: Benztropine Mesylate 0.5 MG TABLET PO (21:04)
[2024-03-11] MEDS: Haloperidol Lactate Oral Conc 10 MG/5 ML ORAL.CONC PO (21:04)
[2024-03-11] MEDS: LORazepam 1 MG TABLET PO (21:05)
[2024-03-12 08:00] VITALS: RESP 18
[2024-03-12] MEDS: Haloperidol Lactate Oral Conc 10 MG/5 ML ORAL.CONC PO ×2 (08:46→20:39)
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
[2024-03-12 20:00] VITALS: BP 114/61; PULSE 83; RESP 15; TEMP 36.5; O2SAT 98
[2024-03-12 20:00] LABS: UPreg QC Valid YES; Urine Pregnancy NEGATIVE (NEGATIVE)
[2024-03-12] MEDS: Benztropine Mesylate 0.5 MG TABLET PO (20:38)
[2024-03-12] MEDS: Lithium Carbonate ER 300 MG TABLET.ER 600 MG PO (20:38)
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
[2024-03-13] MEDS: Haloperidol Lactate Oral Conc 10 MG/5 ML ORAL.CONC PO (09:50)
[2024-03-13] MEDS: Lithium Carbonate ER 300 MG TABLET.ER 600 MG PO (20:17)
[2024-03-14] MEDS: Haloperidol Lactate Oral Conc 10 MG/5 ML ORAL.CONC PO ×2 (09:54→20:10)
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
[2024-03-14] MEDS: Lithium Carbonate ER 300 MG TABLET.ER 600 MG PO (20:09)
[2024-03-14] MEDS: Benztropine Mesylate 0.5 MG TABLET PO (20:10)
[2024-03-14] MEDS: LORazepam 1 MG TABLET PO (20:57)
[2024-03-14] MEDS: traZODone HCL 50 MG TABLET PO (22:25)
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
[2024-03-15] MEDS: Haloperidol Lactate Oral Conc 10 MG/5 ML ORAL.CONC PO ×2 (09:46→20:24)
[2024-03-15 19:46] VITALS: RESP 18
[2024-03-15] MEDS: Benztropine Mesylate 0.5 MG TABLET PO (20:25)
[2024-03-15] MEDS: Lithium Carbonate ER 300 MG TABLET.ER 600 MG PO (20:25)
[2024-03-16 08:00] VITALS: BP 116/57; PULSE 67; RESP 18; TEMP 36.9; O2SAT 98
[2024-03-16] MEDS: Haloperidol Lactate Oral Conc 10 MG/5 ML ORAL.CONC PO ×2 (08:29→21:33)
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
[2024-03-16] MEDS: LORazepam 1 MG TABLET PO (13:10)
[2024-03-16] MEDS: OLANZapine 5 MG TABLET PO (13:17)
[2024-03-16 20:00] VITALS: BP 124/69; PULSE 87; RESP 16; TEMP 36.9; O2SAT 98
[2024-03-16] MEDS: Lithium Carbonate ER 300 MG TABLET.ER 600 MG PO (21:33)
[2024-03-16] MEDS: Benztropine Mesylate 0.5 MG TABLET PO (21:33)
[2024-03-16] MEDS: traZODone HCL 50 MG TABLET PO (21:37)
[2024-03-17 08:00] VITALS: BP 100/58; PULSE 64; RESP 18; TEMP 37.2; O2SAT 97
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
[2024-03-17] MEDS: Haloperidol Lactate Oral Conc 10 MG/5 ML ORAL.CONC PO ×2 (09:57→21:26)
[2024-03-17] MEDS: OLANZapine 5 MG TABLET PO (10:00)
[2024-03-17 19:35] VITALS: BP 112/61; PULSE 73; RESP 16; TEMP 37.1; O2SAT 98
[2024-03-17] MEDS: Benztropine Mesylate 0.5 MG TABLET PO (21:25)
[2024-03-17] MEDS: Lithium Carbonate ER 300 MG TABLET.ER 600 MG PO (21:25)
[2024-03-18 07:00] VITALS: BMI 28.9
[2024-03-18 08:00] VITALS: RESP 18
[2024-03-18] MEDS: Haloperidol Lactate Oral Conc 10 MG/5 ML ORAL.CONC PO ×2 (08:35→20:36)
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
[2024-03-18] MEDS: LORazepam 1 MG TABLET PO (13:12)
[2024-03-18 19:53] VITALS: BP 121/60; PULSE 98; TEMP 37.1; O2SAT 97
[2024-03-18] MEDS: clonazePAM 0.5 MG TABLET PO (20:36)
[2024-03-18] MEDS: Lithium Carbonate ER 300 MG TABLET.ER 600 MG PO (20:36)
[2024-03-18] MEDS: Benztropine Mesylate 0.5 MG TABLET PO (20:36)
[2024-03-18] MEDS: traZODone HCL 50 MG TABLET PO (20:39)
[2024-03-19] MEDS: Haloperidol Lactate Oral Conc 10 MG/5 ML ORAL.CONC PO ×2 (10:23→20:43)
[2024-03-19] MEDS: clonazePAM 0.5 MG TABLET PO (10:24)
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
[2024-03-19 20:00] VITALS: BP 111/64; PULSE 75; TEMP 36.8; O2SAT 99
[2024-03-19] MEDS: clonazePAM 0.5 MG TABLET 0.25 MG PO (20:37)
[2024-03-19] MEDS: Lithium Carbonate ER 300 MG TABLET.ER 600 MG PO (20:38)
[2024-03-19] MEDS: traZODone HCL 50 MG TABLET PO (20:38)
[2024-03-19] MEDS: Benztropine Mesylate 0.5 MG TABLET PO (20:39)
[2024-03-20 08:00] VITALS: BP 108/61; PULSE 72; RESP 16; TEMP 36.9; O2SAT 98
[2024-03-20] MEDS: Haloperidol Lactate Oral Conc 10 MG/5 ML ORAL.CONC PO ×2 (08:42→20:32)
[2024-03-20] MEDS: clonazePAM 0.5 MG TABLET 0.25 MG PO ×2 (08:42→20:33)
[2024-03-20 11:30] LABS: Lithium 0.37 mmol/L (0.60-1.20)
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
[2024-03-20] MEDS: hydrOXYzine HCL 25 MG TABLET PO (13:16)
[2024-03-20 20:00] VITALS: BP 113/65; PULSE 79; TEMP 36.8; O2SAT 97
[2024-03-20] MEDS: Benztropine Mesylate 0.5 MG TABLET PO (20:32)
[2024-03-20] MEDS: Lithium Carbonate ER 300 MG TABLET.ER 600 MG PO (20:32)
[2024-03-20] MEDS: traZODone HCL 50 MG TABLET PO (20:33)
[2024-03-21 07:57] VITALS: BP 104/57; PULSE 75; RESP 16; TEMP 36.4; O2SAT 98
[2024-03-21] MEDS: Haloperidol Lactate Oral Conc 10 MG/5 ML ORAL.CONC PO ×2 (08:51→21:17)
[2024-03-21] MEDS: clonazePAM 0.5 MG TABLET 0.25 MG PO ×2 (08:51→21:17)
[2024-03-21] MEDS: hydrOXYzine HCL 25 MG TABLET PO (13:08)
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
[2024-03-21] MEDS: OLANZapine 5 MG TABLET PO (14:32)
[2024-03-21] MEDS: Benztropine Mesylate 0.5 MG TABLET PO (21:17)
[2024-03-21] MEDS: Lithium Carbonate ER 300 MG TABLET.ER 600 MG PO (21:17)
[2024-03-22 08:00] VITALS: BP 114/56; PULSE 83; RESP 16; TEMP 36.4; O2SAT 98
[2024-03-22] MEDS: Haloperidol Lactate Oral Conc 10 MG/5 ML ORAL.CONC PO ×2 (08:51→20:46)
[2024-03-22] MEDS: clonazePAM 0.5 MG TABLET 0.25 MG PO ×2 (08:51→20:47)
[2024-03-22] MEDS: OLANZapine 5 MG TABLET PO (13:48)
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
[2024-03-22 20:00] VITALS: BP 111/57; PULSE 77; TEMP 37.7; O2SAT 99
[2024-03-22] MEDS: Benztropine Mesylate 0.5 MG TABLET PO (20:46)
[2024-03-22] MEDS: Lithium Carbonate ER 450 MG TABLET.ER 900 MG PO (20:46)
[2024-03-22] MEDS: traZODone HCL 50 MG TABLET PO (20:46)
[2024-03-23 08:00] VITALS: BP 108/59; PULSE 96; RESP 18; TEMP 36.9; O2SAT 99
[2024-03-23] MEDS: Haloperidol Lactate Oral Conc 10 MG/5 ML ORAL.CONC PO ×2 (09:18→20:43)
[2024-03-23] MEDS: clonazePAM 0.5 MG TABLET 0.25 MG PO ×2 (09:18→20:42)
[2024-03-23] MEDS: OLANZapine 5 MG TABLET PO (16:05)
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
[2024-03-23 20:00] VITALS: BP 117/59; PULSE 78; TEMP 36.3; O2SAT 99
[2024-03-23] MEDS: Lithium Carbonate ER 450 MG TABLET.ER 900 MG PO (20:42)
[2024-03-23] MEDS: Benztropine Mesylate 0.5 MG TABLET PO (20:43)
[2024-03-23] MEDS: traZODone HCL 50 MG TABLET PO (20:43)
[2024-03-24] MEDS: clonazePAM 0.5 MG TABLET 0.25 MG PO (08:58)
[2024-03-24] MEDS: Haloperidol Lactate Oral Conc 10 MG/5 ML ORAL.CONC PO (08:58)
[2024-03-24] MEDS: OLANZapine 5 MG TABLET PO (09:45)
--- NOTE | 2024-03-24 10:11 | PM.PSYDC ---
DS: Providers Provider Date of Service: 03/24/24 Date of admission: 02/17/24 22:54 Date of discharge: 03/24/24 Primary care physician: Unknown Physician Admitting clinician: Lynette Zabala Attending physician on admission: Antwan Shoemaker Consults: 02/18/24 09:16 Consult to Hospitalist Routine Comment: Consulting Provider: Hospitalist Reason For Exam: transfer pt Attending physician on discharge: Antwan Shoemaker Discharging clinician: Lynette Zabala DS: Diagnosis Discharge Diagnosis (1) Schizoaffective disorder, bipolar type: Status: Acute DS: Medications Discharge Medications Home Medications: Previous Rx's ?Medication ?Instructions ?Recorded benztropine 0.5 mg tablet 0.5 mg PO BEDTIME #30 tabs 03/24/24 clonazepam 0.5 mg tablet 0.25 mg (1/2 x 0.5 mg) PO BID #7 03/24/24 tabs famotidine 20 mg tablet 20 mg PO DAILY #30 tabs 03/24/24 haloperidol 10 mg tablet 10 mg PO BID #60 tabs 03/24/24 hydroxyzine HCl 25 mg tablet 25 mg PO Q6H PRN Anxiety #30 tabs 03/24/24 lithium carbonate 450 mg 900 mg (2 x 450 mg) PO BEDTIME #60 03/24/24 tablet,extended release tabs olanzapine 5 mg tablet 5 mg PO BEDTIME #30 tabs 03/24/24 trazodone 50 mg tablet 50 mg PO BEDTIME MRX1 PRN Sleep 03/24/24 #30 tabs Mental Status Exam Mental Status Exam Patient Appearance: Appropriate Patient Orientation: Person and Situation Level of Consciousness: Awake and Appropriate Patient Behavior: Guarded and Passive Mood Description: Calm Affect Description: Constricted Patient Cognition Impaired: Yes Ability to Follow Directions: Good Speech Pattern: Clear Hallucinations: None Delusions: Not Present Thought Process: Distracted and Slowed Thinking Thought Content: positive for [place] and positive for Circumstantial Judgement: Fair Data Data Completed and Pending Completed studies during hospitalization [Text1]: 03/20/24 11:15 [place] 0.37 L DS: Summary Hospital Course Hospital Course: Admission to adult psychiatry for exacerbation of schizoaffective disorder, bipolar type. Pt stopped medications prior to admission due to side effects and weight gain. She was unable to begin a regime she would comply with, stating she was not in need of medications as she was not ill. Section seven was filed. Section eight was authorized by the court. Pt was stabilized on a combination of Haldol, Olanzapine, [place], Klonopin. During this time she exhibited sx of severe agitation and violence, however, once stabilized, these symptoms resolved. She discharged to [facility]. She refused [facility] offer and reports she has a better understanding of needing to be consistent with medications to manage symptoms. Status at Discharge Functional status at discharge: independent ambulation Overall status at discharge: patient is back to baseline Time Spent with Patient Time attestation: Total time managing care of this patient today ____ minutes. Time spent: Less than 30 minutes Discharge Plan Discharge Anticipated Discharge Date/Time: 03/24/24 12:00 Patient Disposition: Home, Self-Care Discharge Diagnosis: Schizoaffective Disorder, Bipolar Type Referrals: Yvette Winters NP (psychiatry): [facility] [Other] - 04/08/24 9:30 am (Hospital discharge appointment with psychiatric medication provider. Appointment is in office at [facility] ) [facility]: (therapy) [Other] - 1 Week (Hospital discharge referral Agency will contact you when you have been assigned a therapist to schedule initial intake appointment. Should you have any questions please call [facility] to speak with them regarding therapy services and wait list.) Physician,Unknown J [Primary Care Provider] - 1 Week Discharge Medications: New benztropine 0.5 mg Tablet 0.5 mg PO BEDTIME Qty: 30 0RF trazodone 50 mg Tablet 50 mg PO BEDTIME MRX1 PRN (Reason: Sleep) Qty: 30 0RF clonazepam 0.5 mg Tablet 0.25 mg PO BID Qty: 7 3RF lithium carbonate 450 mg Tablet Extended Release 900 mg PO BEDTIME Qty: 60 0RF hydroxyzine HCl 25 mg Tablet 25 mg PO Q6H PRN (Reason: Anxiety) Qty: 30 0RF famotidine 20 mg tablet 20 mg PO DAILY Qty: 30 0RF haloperidol 10 mg tablet 10 mg PO BID Qty: 60 0RF olanzapine 5 mg tablet 5 mg PO BEDTIME Qty: 30 0RF Discontinued ziprasidone HCl 20 mg Capsule 20 mg PO BIDAC 30 Days Qty: 60 0RF famotidine 20 mg Tablet 20 mg PO DAILY 30 Days Qty: 30 0RF fluoxetine 20 mg Capsule 20 mg PO DAILY 30 Days Qty: 30 0RF benztropine 0.5 mg tablet 0.5 mg PO BID lithium carbonate 300 mg tablet extended release 600 mg PO BEDTIME risperidone 1 mg tablet 1 mg PO BEDTIME aripiprazole 15 mg tablet 15 mg PO QAM Discharge Orders: Discharge Order (Routine); Ordered 03/24/24 Ordered By: Lynette Zabala Diet: Advance to usual diet Activity on Discharge: As tolerated Stand Alone Forms: Patient Portal Discharge page, Community Support Print Language: Swedish Care Plan Goals: Mood and Behavioral Stabilization Health Concerns: Mood and Behavioral Stabilization Plan of Treatment: Attend scheduled appointments Take medications as directed Assessment: Scheduled discharge No SI/HI/AH/VH, sx of angelia or psychosis Discharge Date/Time: 03/24/24 11:31
== END 2024-03-24 11:31 | disposition home or self-care (01) | DRG 750 ==
PROVIDERS: Social Worker; Admitting Provider Psychiatry & Neurology Psychiatry; Visit Provider Clinical Nurse Specialist Psychiatric/Mental Health, Adult
DX: F25.0 Schizoaffective disorder, bipolar type (principal); F43.10 Post-traumatic stress disorder, unspecified; Z78.1 Physical restraint status; Z79.899 Other long term (current) drug therapy
CPT/HCPCS: 36415; 80048; 80178; 81003; 81025; 84443; J1200; J1630; J2060

== ENCOUNTER → 2024-02-17 22:54 | Outpatient (BNV) | payer OTHER, SELFPAY | PROVIDERS: Admitting Provider Psychiatry & Neurology Psychiatry; Visit Provider Psychiatry & Neurology Psychiatry | DX: F25.0 Schizoaffective disorder, bipolar type (principal) | CPT/HCPCS: 99232 ==

== ENCOUNTER → 2024-02-17 22:54 | Outpatient (BNV) | payer MEDICAID, SELFPAY | PROVIDERS: Admitting Provider Psychiatry & Neurology Psychiatry; Visit Provider Student in an Organized Health Care Education/Training Program | DX: Z02.2 Encounter for examination for admission to residential institution (principal) | CPT/HCPCS: 99429 ==

== ENCOUNTER → 2024-02-17 22:54 | Outpatient (BNV) | payer OTHER, SELFPAY | PROVIDERS: Admitting Provider Psychiatry & Neurology Psychiatry; Visit Provider Clinical Nurse Specialist Psychiatric/Mental Health, Adult | DX: F25.0 Schizoaffective disorder, bipolar type (principal) | CPT/HCPCS: 99231; 99232; 99233; 99499 ==